=== PATIENT | male | born 1955 | race Caucasian/White ===

== ENCOUNTER → 2017-02-21 | Outpatient (CLI) | payer BC ==
--- NOTE | 2017-02-22 09:52 | RADONC ---
RADIATION ONCOLOGY CONSULTATION NOTE DATE: 02/21/2017 CHART NUMBER: [id number] DIAGNOSIS: Prostate cancer. STAGE: IIA, [id number]. ECOG PERFORMANCE STATUS: 0 CONSULTATION NOTE: Mr. Delaney is a very pleasant 61-year-old white male with the diagnosis of a stage IIA, [id number] moderately differentiated [place] score 6 (3-3) adenocarcinoma with a PSA of 3.5, who is presenting to us today for discussion of the possibility of external beam radiation therapy utilizing IMRT/IGRT as a therapeutic option. HISTORY OF PRESENT ILLNESS: The patient was in his usual state of health but had a slowly rising PSA which reached 3.5 on 12/19/2016. On 01/27/2017 the patient underwent prostatic needle biopsy and several cores were found to be positive for a moderately differentiated Rosalia score 6 (3-3) adenocarcinoma on the left side of the prostate. No malignancy was seen on the patient's right side. The surgery option was discussed at length with this patient by Dr. Donald Martinez at [facility] but the patient has decided he wishes to undergo IMRT external beam radiation therapy. PAST MEDICAL HISTORY: The patient's past medical history is positive for arthritis as well as glaucoma and hypertension. He had a splenectomy in the past. ALLERGIES: The patient has NO KNOWN DRUG ALLERGIES. SOCIAL HISTORY: The patient does not smoke cigarettes nor abuse alcohol. FAMILY HISTORY: The patient's family history is positive for father with some unknown type of cancer and a mother with multiple myeloma. He also has a brother with head and neck cancer. REVIEW OF SYSTEMS: The patient's review of systems is positive for joint pain secondary to arthritis, but is otherwise noncontributory. He denies nausea, vomiting, fevers, chills, night sweats, diplopia, headaches, anxiety or depression, anorexia, weight loss, visual disturbances, chest pain, urinary or bowel difficulties, bone pain or neurological problems. PHYSICAL EXAMINATION: The patient is a well-developed, well-nourished male in no acute distress. HEENT exam is normocephalic, atraumatic. Extraocular movements are intact. There is no palpable cervical, supraclavicular, infraclavicular, axillary, or inguinal lymphadenopathy present. Lungs are clear to auscultation and percussion. Heart has a regular rate and rhythm. Abdomen is benign with no hepatosplenomegaly, masses, or tenderness. Rectal examination reveals a normal anal sphincter tone. His prostate is smooth with no evidence of nodularity. Skeletal examination reveals no tenderness to pressure or percussion of the bony skeleton. Extremities reveal no clubbing, cyanosis, or edema. Neurologic exam is grossly intact as is the remainder of the physical examination. MEDICAL NECESSITY: IMRT/IGRT is clinically indicated for the highly conformal dose planning required. The target volume is in close proximity to critical structures, such as the rectum, bladder, small bowel, and femoral heads. The volume of interest must be covered with narrow margins to adequately protect immediately adjacent structures. The plan requires interpretation of complex testing such as CT localization. As noted above, special planning (IMRT) and localizing (IGRT) is required and essential to maximally protect sensitive normal tissue structures which cannot be accomplished using conventional 3-dimensional planning. ASSESSMENT: Clearly the patient is a candidate for external beam radiation therapy and I have so informed him. I have discussed with the patient in detail the potential benefits as well as possible acute and chronic sequelae of external beam radiation therapy. We have discussed the logistics of treatment planning, simulation and subsequent fractionated daily radiation treatments. I discussed in detail with the patient as well the techniques and justification for IMRT radiation. He will need a high dose of external beam radiation in order to achieve long-term control of this malignancy and there are multiple critical structures including the bladder, rectum, small bowel, femoral heads and large bowel within the treatment volumes. IMRT radiation as well as IGRT daily imaging are necessary in order to maintain the normal structures within their tolerance limits and with the lowest dose possible. This is especially true in this young patient who we anticipate will live many years and hope to avoid any alf difficulties with radiation. In addition, I discussed with the patient the benefits and drawbacks of each of the two main curative modalities including radiation therapy versus surgery. The patient reports that he has had two very close friends that have had IMRT radiation therapy in this department and have done exceedingly well with no problems whatsoever and no evidence of recurrence. He therefore wishes to undergo this treatment. He reports that they were also quite young at the time they had radiation. I am referring the patient back to his urologist Dr. Martinez for placement of his fiducial markers. Radiation treatment planning will begin subsequently. Thank you for allowing us to participate in the care of this very pleasant gentleman. If I could be of any further assistance or provide you with any information, please free to contact me at anytime. cc: *Be Moe MD
== END ==
LOC: M ONCR 09:13
PROVIDERS: ATTEND Radiology Radiation Oncology
DX: C61 Malignant neoplasm of prostate (principal)

== ENCOUNTER 2017-04-20 13:21 | Outpatient (RCR) | payer BC ==
--- NOTE | 2017-04-20 13:50 | RADONC ---
RADIATION ONCOLOGY SIMULATION NOTE: DATE: 04/20/2017 CHART NUMBER: [id number] Mr. Delaney was taken to the CT scan for CT simulation of his prostate field. CT was accomplished without difficulty or discomfort. Radiation treatment planning is underway and radiation treatments will begin subsequently. An immobilization device was created and will be used throughout the course of treatment. It was created without difficulty or discomfort. I was physically present throughout the course of CT simulation.
--- NOTE | 2017-05-02 07:57 | RADONC ---
RADIATION ONCOLOGY PROGRESS NOTE DATE: 05/01/2107 CHART NUMBER: [id number] Mr. Delaney underwent his first fraction of radiation today to his prostate. It was tolerated without difficulty or discomfort. REVIEW OF SYSTEMS: The patient's review of systems is noncontributory. He denies nausea, vomiting, fevers, chills, night sweats, diplopia, headaches, anxiety or depression, anorexia, weight loss, visual disturbances, chest pain, urinary or bowel difficulties, bone pain or neurological problems. PHYSICAL EXAMINATION: Clearly there was no radiation change present on the skin. The remainder of his physical exam remained unchanged as well. Mr. Delaney tolerated his first fraction without difficulty and radiation will continue as scheduled.
== END 2017-05-08 ==
LOC: M ONCR 13:21
PROVIDERS: ATTEND Radiology Radiation Oncology
DX: C61 Malignant neoplasm of prostate (principal)

== ENCOUNTER → 2017-04-20 | Outpatient (CLI) | payer BC | LOC: M RAD 13:35 | PROVIDERS: ATTEND Radiology Radiation Oncology | DX: C61 Malignant neoplasm of prostate (principal) ==

== ENCOUNTER 2017-05-09 11:13 | Outpatient (RCR) | payer BC ==
--- NOTE | 2017-05-15 15:10 | RADONC ---
RADIATION ONCOLOGY PROGRESS NOTE DATE: 05/15/2017 CHART NUMBER: [id number] Mr. Delaney is presently at a dose of 1980 cGy to his prostate and is tolerating treatments quite well at this point with no significant difficulties related to his radiation therapy. He is having some mild urinary hesitancy but otherwise no urinary or bowel difficulties. No bone pain. The patient's review of systems is positive for some urinary hesitancy but is otherwise noncontributory. He denies nausea, vomiting, fevers, chills, night sweats, diplopia, headaches, anxiety or depression, anorexia, weight loss, visual disturbances, chest pain, urinary or bowel difficulties, bone pain, or neurological problems. PHYSICAL EXAMINATION: The patient's skin is in good condition with no evidence of radiation change present. There is no moist or dry desquamation. The remainder of his physical exam remains unchanged. Mr. Delaney is tolerating treatments quite well, and radiation will continue as scheduled.
--- NOTE | 2017-05-23 07:39 | RADONC ---
RADIATION ONCOLOGY PROGRESS NOTE DATE OF SERVICE: 05/22/2017 CHART NUMBER: [id number] Mr. Delaney is presently at a dose 2880 centigrade to his prostate and is tolerating treatments quite well at this point with no significant difficulties related to his radiation therapy other than some urinary hesitancy. REVIEW OF SYSTEMS: The patient's review of systems is positive for urinary hesitancy but is otherwise noncontributory. Denies nausea, vomiting, fevers, chills, night sweats, diplopia, headaches, anxiety or depression, anorexia, weight loss, visual disturbances, chest pain, urinary or bowel difficulties, bone pain, or neurological problems. PHYSICAL EXAMINATION: The patient's skin is in good condition with no evidence of moist or dry desquamation. The remainder of his physical exam remains unchanged. Mr. Delaney is tolerating treatments quite well and radiation will continue as scheduled. I have recommended that he use Pyridium. He is still able to urinate.
--- NOTE | 2017-05-30 07:54 | RADONC ---
RADIATION ONCOLOGY PROGRESS NOTE: DATE: 05/29/2017 CHART NUMBER: [id number] Mr. Delaney is presently at a dose of 4780 cGy to his prostate and is tolerating treatments quite well at this point with no significant difficulties related to his radiation therapy other than some urinary hesitancy. REVIEW OF SYSTEMS: The patient's review of systems is positive for some urinary hesitancy but is otherwise noncontributory. He denies nausea, vomiting, fevers, chills, night sweats, diplopia, headaches, anxiety or depression, anorexia, weight loss, visual disturbances, chest pain, urinary or bowel difficulties, bone pain, or neurological problems. PHYSICAL EXAMINATION: The patient's skin is in good condition with no evidence of moist or dry desquamation. The remainder of his physical exam remains unchanged. Mr. Mo is tolerating treatments quite well and radiation will continue as scheduled.
--- NOTE | 2017-06-06 08:56 | RADONC ---
RADIATION ONCOLOGY PROGRESS NOTE: DATE: 06/05/2017 CHART NUMBER: [id number] Mr. Delaney is presently at a dose of 4680 cGy to his prostate and is tolerating treatments quite well at this point with no complaints related to his radiation therapy. He is having no urinary or bowel difficulties and no bone pain. REVIEW OF SYSTEMS: The patient's review of systems is noncontributory. He denies nausea, vomiting, fevers, chills, night sweats, diplopia, headaches, anxiety or depression, anorexia, weight loss, visual disturbances, chest pain, urinary or bowel difficulties, bone pain, or neurological problems. PHYSICAL EXAMINATION: The patient's skin is in good condition with no evidence of radiation change present. There is no moist or dry desquamation. The remainder of his physical exam remains unchanged. Mr. Delaney tolerating treatments quite well and radiation will continue as scheduled.
== END 2017-06-08 ==
LOC: M ONCR 11:13
PROVIDERS: ATTEND Radiology Radiation Oncology
DX: C61 Malignant neoplasm of prostate (principal)

== ENCOUNTER 2017-06-09 13:05 | Outpatient (RCR) | payer BC ==
--- NOTE | 2017-06-14 10:17 | RADONC ---
RADIATION ONCOLOGY PROGRESS NOTE: DATE: 06/13/2017 CHART NUMBER: [id number]. PROGRESS NOTE: Mr. Delaney is presently at a dose of 5580 cGy to his prostate and is tolerating treatments quite well at this point with no complaints related to his radiation therapy. He is having no urinary or bowel difficulties and no bone pain. REVIEW OF SYSTEMS: The patient's review of systems is noncontributory. Denies nausea, vomiting, fevers, chills, night sweats, diplopia, headaches, anxiety or depression, anorexia, weight loss, visual disturbances, chest pain, urinary or bowel difficulties, bone pain, or neurological problems. PHYSICAL EXAMINATION: The patient's skin is in good condition with no evidence of moist or dry desquamation. The remainder of his physical exam remains unchanged. Mr. Delaney is tolerating treatments quite well and radiation will continue as scheduled.
--- NOTE | 2017-06-20 08:20 | RADONC ---
RADIATION ONCOLOGY PROGRESS NOTE DATE: 06/19/2017 CHART NUMBER: [id number] Mr. Delaney is presently at a dose of 6300 cGy to his prostate and is tolerating treatments quite well at this point with no complaints related to his radiation therapy. He is having no urinary or bowel difficulties and no bone pain. The patient's review of systems is noncontributory. He denies nausea, vomiting, fevers, chills, night sweats, diplopia, headaches, anxiety or depression, anorexia, weight loss, visual disturbances, chest pain, urinary or bowel difficulties, bone pain, or neurological problems. PHYSICAL EXAMINATION: The patient's skin is in good condition with no evidence of radiation change present. There is no moist or dry desquamation. The remainder of his physical exam remains unchanged as well. Mr. Delaney is tolerating treatments quite well and radiation will continue as scheduled.
--- NOTE | 2017-06-27 07:23 | RADONC ---
RADIATION ONCOLOGY PROGRESS NOTE: DATE: 06/26/2017 CHART NUMBER: [id number] Mr. Delaney is presently at a dose of 7200 cGy to his prostate and is tolerating treatments quite well at this point with no complaints related to his radiation therapy. He is having no urinary or bowel difficulties. No bone pain. REVIEW OF SYSTEMS: The patient's review of systems is noncontributory. He denies nausea, vomiting, fevers, chills, night sweats, diplopia, headaches, anxiety or depression, anorexia, weight loss, visual disturbances, chest pain, urinary or bowel difficulties, bone pain, or neurological problems. PHYSICAL EXAMINATION: The patient's skin is in good condition with no evidence of radiation change present. There is no moist or dry desquamation. The remainder of his physical exam remains unchanged. Mr. Cartagena is tolerating his treatments quite well and radiation will continue as scheduled.
--- NOTE | 2017-07-04 08:57 | RADONC ---
RADIATION ONCOLOGY TREATMENT SUMMARY: DATE: 07/03/2017 CHART NUMBER: [id number] DIAGNOSIS: Parotid state cancer. STAGE: II A, [id number]. ECOG PERFORMANCE STATUS: 0 Mr. Delaney is a very pleasant 62-year-old white male with the diagnosis of a stage II A, [id number], moderately differentiated Rosalia score 6 (3 - 3) adenocarcinoma of prostate with a PSA of 3.50 who presented to us for consideration of definitive external beam radiation therapy. We treated Mr. Delaney to have a dose of 7920 cGy delivered and 44 fractions of 180 cGy each over 58 elapsed days from 05/01/2017 through 06/30/2017. The patient's prostate was treated on a linear accelerator utilizing a 6 MV photon beam via IMRT/IGRT. We initially treated the prostate and seminal vesicles to a dose of 5400 cGy and subsequently coned down to deliver the remaining 2520 cGy of the prostate itself once again bringing it to a total dose of 7920 cGy. Mr. Adkins was able to tolerate his treatments quite well with no difficulties related to his radiation therapy. He completed therapy without interruption as prescribed. I have scheduled the patient to see me again in 1 month for further followup. He will also continue to be followed by his other physicians as well. Thank you for allowing us to participate in the care of this very pleasant gentleman. If I could be of any further assistance or provide you any information, please free to contact me anytime. As always warm regards, cc: MD PARVEZ Aguila MD
== END 2017-07-08 ==
LOC: M ONCR 13:05
PROVIDERS: ATTEND Radiology Radiation Oncology
DX: C61 Malignant neoplasm of prostate (principal)

== ENCOUNTER → 2017-08-16 | Outpatient (CLI) | payer BC ==
--- NOTE | 2017-08-18 16:09 | RADONC ---
RADIATION ONCOLOGY FOLLOWUP NOTE DATE: 08/16/2017 CHART NUMBER: [id number]. DIAGNOSIS: Prostate cancer. STAGE: IIA, TbN0M0. ECOG PERFORMANCE STATUS: Zero. FOLLOWUP NOTE: Mr. Delaney is a very pleasant, 62-year-old white male with the diagnosis of a stage IIA, TbN0M0 moderately differentiated Rosalia score 6 (3-3) adenocarcinoma of the prostate who is presenting to us today for routine followup visit 1 month post completion of external beam radiation therapy. The patient presents today reporting that he is doing generally quite well with no complaints at this time related to his radiation therapy or disease. He is having no urinary or bowel difficulties. No bone pain. REVIEW OF SYSTEMS: The patient's review of systems is noncontributory. Denies nausea, vomiting, fevers, chills, night sweats, diplopia, headaches, anxiety or depression, anorexia, weight loss, visual disturbances, chest pain, urinary or bowel difficulties, bone pain, or neurological problems. PHYSICAL EXAMINATION: The patient is a well-developed, well-nourished male in no acute distress. HEENT exam is normocephalic, atraumatic. Extraocular movements are intact. There is no palpable cervical, supraclavicular, infraclavicular, axillary, or inguinal lymphadenopathy present. Lungs are clear to auscultation and percussion. Heart has a regular rate and rhythm. Abdomen is benign with no hepatosplenomegaly, masses, or tenderness. Rectal examination reveals a normal anal sphincter tone. His prostate is smooth with no evidence of nodularity. Skeletal examination reveals no tenderness to pressure or percussion of the bony skeleton. Extremities reveal no clubbing, cyanosis, or edema. Neurologic exam is grossly intact, as is the remainder of the physical examination. ASSESSMENT: The patient is clinically GEORGE at this time and will be seen by us again in 6 months for further followup. He will also continue to be followed by his other physicians as well. A PSA was done on 08/07/2017 and was 3.2. Of course I would prefer to see this somewhat lower. We will continue to follow, however. cc: SYLVESTER Martin cc: Be Moe MD
== END ==
LOC: M ONCR 14:32
PROVIDERS: ATTEND Radiology Radiation Oncology
DX: C61 Malignant neoplasm of prostate (principal)

== ENCOUNTER → 2018-02-21 | Outpatient (CLI) | payer BC | LOC: M ONCR 14:15 | DX: Z08 Encounter for follow-up examination after completed treatment for malignant neoplasm (principal); Z85.46 Personal history of malignant neoplasm of prostate | CPT/HCPCS: G0463 ==

== ENCOUNTER → 2018-08-22 | Outpatient (CLI) | payer BC | LOC: M ONCR 14:33 | DX: Z85.46 Personal history of malignant neoplasm of prostate (principal) | CPT/HCPCS: G0463 ==

== ENCOUNTER → 2022-03-09 | Outpatient (CLI) | payer BC ==
[~2022-03-09] MED LIST: FOLI1TAB11 PO; HUMI40KI SC; HYDR-3490 PO; LISI20TA33 PO; METH2.5T48 PO; PANT20TA6 PO; PRAV40TA2 PO
== END ==
LOC: M LABSMTC 10:52
PROVIDERS: ATTEND Anesthesiology
DX: Z01.812 Encounter for preprocedural laboratory examination (principal); Z20.822 Contact with and (suspected) exposure to COVID-19

== ENCOUNTER 2022-03-11 06:24 | Day surgery (SDC) | payer BC ==
[~2022-03-11] VITALS: Ht 172.7 cm; Wt 92.9 kg
[~2022-03-11 06:24] MED LIST changes: +NS 1,000 ML IV ONE
[2022-03-11] MEDS ORDERED: propofoL 500 MG/50 ML VIAL As Ordered ONE (06:58)
[2022-03-11] MEDS ORDERED: fentaNYL 100 MCG/2 ML INJECTION As Ordered ONE (07:31)
[2022-03-11] MEDS ORDERED: LIDOCAINE 2% 100MG/5ML SDV (FOR ANES.) As Ordered ONE (07:52)
[2022-03-11 08:25] VITALS: BP 147/85
== END 2022-03-11 08:37 | disposition home or self-care (01) ==
LOC: M OPP 06:24
PROVIDERS: ATTEND Internal Medicine Gastroenterology
CPT/HCPCS: 43235; 45385; 88305; J3010